=== PATIENT | male | born 1970 | race Caucasian/White ===

== ENCOUNTER 2021-06-27 18:18 | Emergency (ER) | payer BC ==
--- NOTE | 2021-06-27 19:36 | ERPHSYRPT ---
- History of Present Illness Time Seen by Provider: 06/27/21 18:35 Source: patient Exam Limitations: no limitations Patient Subjective Stated Complaint: Pt states "I have been fighting this for the past two weeks and I tried to get into [facility] who is my primary but she could not get me in so I went to the clinic and spoke with negrito and she put me on prednisone for five days and tomorrow is my last day on it. I had no antibiotics and no chest x ray which I would have liked, I am here. I know what works and I need a z pack and cough medicine and prednisone and it will work, I know it will it always does." Triage Nursing Assessment: Pt presented alert and oriented X 3, skin pwd Pt ambulates with an upright steady gait, able to speak in clear full sentences. Pt actually speaking quite a bit without any difficulty. Physician History: Patient is a 50-year-old male presents to our ED with complaints of a cough x2 weeks. Patient followed up in an outside clinic and was started on prednisone. Patient upset that he did not get a chest x-ray antibiotics and cough medication as well. Patient is here requesting these interventions. Cough is dry but occasionally productive of greenish sputum. No fever. Patient has had the symptoms before and states that the above regimen resolves the problem. Symptoms are constant. Symptoms are moderate in intensity. No specific worsening improving factors. No chest pain. No shortness of breath. No nausea vomiting or diaphoresis. No rash. Patient voices no other complaints concerns at this time. Timing/Duration: week(s) (2 weeks) Severity: moderate Modifying Factors: Improves With: nothing Associated Symptoms: denies symptoms, No diaphoresis, No chest pain, No fever, No weakness Allergies/Adverse Reactions: No Known Drug Allergies Allergy (Verified 06/27/21 18:38) Home Medications: Amlodipine Besylate 10 mg PO DAILY 06/27/21 [History] Hx Tetanus, Diphtheria Vaccination/Date Given: Yes Hx Influenza Vaccination/Date Given: No Hx Pneumococcal Vaccination/Date Given: No Immunizations Up to Date: Yes Travel Risk - International Travel Have you traveled outside of the country in past 3 weeks: No - Coronavirus Screening Are you exhibiting any of the following symptoms?: Yes Symptoms: Cough: New Onset Close contact with a COVID-19 positive Pt in past 14-21 Days: No - Vaccine Status Have you recieved a Covid-19 vaccination: Yes News Agent: Moderna - Vaccination Dates Date of 2cond Vaccination (if applicable): 2020 - Review of Systems Constitutional: No Symptoms, No Fever, No Chills Eyes: No Symptoms Ears, Nose, & Throat: No Symptoms Respiratory: No Symptoms, No Cough, No Dyspnea Cardiac: No Symptoms, No Chest Pain, No Edema, No Syncope Abdominal/Gastrointestinal: No Symptoms, No Abdominal Pain, No Nausea, No Vomiting, No Diarrhea Genitourinary Symptoms: No Symptoms, No Dysuria Musculoskeletal: No Symptoms, No Back Pain, No Neck Pain Skin: No Symptoms, No Rash Neurological: No Symptoms, No Dizziness, No Focal Weakness, No Sensory Changes Psychological: No Symptoms Endocrine: No Symptoms Hematologic/Lymphatic: No Symptoms Immunological/Allergic: No Symptoms All Other Systems: Reviewed and Negative - Past Medical History Pertinent Past Medical History: Yes Neurological History: No Pertinent History ENT History: No Pertinent History Cardiac History: Hypertension Respiratory History: Asthma, COPD Endocrine Medical History: Diabetes Type II Musculoskeletal History: Arthritis GI Medical History: No Pertinent History History: No Pertinent History Psycho-Social History: Depression Male Reproductive Disorders: No Pertinent History - Past Surgical History Past Surgical History: Yes Other Surgical History: oral - Social History Smoking Status: Former smoker Exposure to second hand smoke: Yes Drug Use: none Patient Lives Alone: No - Nursing Vital Signs Nursing Vital Signs: Initial Vital Signs Temperature 97.6 F 06/27/21 18:30 Pulse Rate 106 H 06/27/21 18:30 Respiratory Rate 22 06/27/21 18:30 Blood Pressure 148/110 06/27/21 18:30 O2 Sat by Pulse Oximetry 97 06/27/21 18:30 Pain Scale Pain Intensity 0 - Physical Exam General Appearance: no apparent distress, alert Eye Exam: PERRL/EOMI, eyes nml inspection Ears, Nose, Throat Exam: normal ENT inspection, TMs normal, pharynx normal, moist mucous membranes Neck Exam: normal inspection, non-tender, supple, full range of motion Respiratory Exam: normal breath sounds, lungs clear, airway intact, No respiratory distress Cardiovascular Exam: regular rate/rhythm, normal heart sounds, normal peripheral pulses, other (Coarse breath sounds throughout. Wheezing at bases. Patient declined breathing treatment) Gastrointestinal/Abdomen Exam: soft, normal bowel sounds, No tenderness, No mass Back Exam: normal inspection, normal range of motion, No CVA tenderness, No vertebral tenderness Extremity Exam: normal inspection, normal range of motion, pelvis stable Neurologic Exam: alert, oriented x 3, cooperative, normal mood/affect, sensation nml, No motor deficits Skin Exam: normal color, warm, dry, No rash Lymphatic Exam: No adenopathy SpO2 Interpretation: normal SpO2: 95 O2 Delivery: Room Air - Course Nursing assessment & vital signs reviewed: Yes - Radiology Exams Chest X-ray Interpretation: Interpreted by me (Left costophrenic angle blunting. Bibasilar atelectasis. Normal cardiac silhouette. Intact bony thorax.) Ordered Tests: Active Orders 24 hr Category Date Time Status CHEST 1 VIEW (PORTABLE) Stat Exams 06/27/21 19:29 Taken - Progress Progress: improved Progress Note: Physical exam reveals coarse breath sounds. Patient currently on prednisone. Patient declined breathing treatment. Patient requesting Tussionex and a Z-Bob. Prescription for both were provided. Tussionex is a written prescription as it did not want to transmit electronically. Z-Bob was transmitted electronically. Patient agrees to follow-up with primary care doctor within 48 hours reevaluation. He voices other complaints concerns at this time. Patient states he can self administer breathing treatments at home. Portions of this note were created with voice recognition technology. There may be grammatical, spelling, punctuation or sound alike errors 06/27/21 19:49 Counseled pt/family regarding: diagnosis, need for follow-up, rad results - Departure Departure Disposition: Home Clinical Impression: Cough, Bronchitis Condition: Stable Critical Care Time: No Referrals: MARIAN DAN NP [Primary Care Provider] - Follow up/PCP as directed Instructions: Acute Bronchitis Additional Instructions: Discharge/Care Plan GEOVANNY RINCON was seen on 06/27/21 in the Emergency Room. The patient was counseled regarding Diagnosis,Lab results, Imaging studies, need for follow up and when to return to the Emergency Room. Prescriptions given: Discharge Note I have spoken with the patient and/or caregivers. I have explained the patient's condition, diagnosis and treatment plan based on the information available to me at this time. I have answered the patient's and/or caregiver's questions and addressed any concerns. The patient and/or caregivers have as good understanding of the patient's diagnosis, condition and treatment plan as can be expected at this point. The vital signs have been stable. The patient's condition is stable and appropriate for discharge from the emergency department. The patient will pursue further outpatient evaluation with the primary care physician or other designated or consulting physician as outlined in the discharge instructions. The patient and/or caregivers are agreeable to this plan of care and follow-up instructions have been explained in detail. The patient and/or caregivers have received these instruction. The patient/and or caregivers are aware that any significant change in condition or worsening of symptoms should prompt an immediate return to this or the closest emergency department or call 911. Prescriptions: Azithromycin 250 mg [Zithromax 250 MG TABLET] 250 mg PO ZPACK #6 tablet
[2021-06-27 19:58] VITALS: BP 125/65; PULSE 87
[2021-06-27 23:27] VITALS: O2SAT 95
--- NOTE | 2021-06-28 08:46 | XRAY ---
Indication: Cough and congestion. Negative Covid 19. Comparison: None Portable apical lordotic chest hyperinflated with minimal left base subsegmental atelectasis/scarring. Remaining heart and lungs unremarkable. Bony thorax intact with mild degenerative changes.
== END 2021-06-27 20:09 | disposition home or self-care (01) ==
LOC: MERGE 18:18 → ED 18:18
DX: J40 Bronchitis, not specified as acute or chronic (principal); J44.9 Chronic obstructive pulmonary disease, unspecified; I10 Essential (primary) hypertension; E11.9 Type 2 diabetes mellitus without complications
CPT/HCPCS: 71045; 99283

== ENCOUNTER 2023-11-15 13:57 | Emergency (ER) | payer BC, OTHER ==
[2023-11-15 14:11] VITALS: RESP 18; TEMP 98.6
--- NOTE | 2023-11-15 14:24 | ERPHSYRPT ---
- History of Present Illness Time Seen by Provider: 11/15/23 14:23 Historian: patient Exam Limitations: no limitations Patient Subjective Stated Complaint: pt here for constipation and abd pain off and on for 12-14 months now. took 9 laxatives since sat. no vomiting, no loose stools. has not seen family doc for this Triage Nursing Assessment: pt alert, walked in, gait steady, resp easy, skin w/d/p. abd soft, slightly tender to touch epigastric area. moves all ext well. no edema noted Physician History: The patient presents with a 14-month history of abdominal pain and altered bowel habits. He reports a decrease in bowel movements to twice a week, often with difficulty. The pain is localized to the mid-abdomen and has been described as moderate, around a 4 or 5 on a pain scale. The pain does not radiate and has remained in the same location. The patient denies any nausea, vomiting, or blood in the stool. He has tried multiple laxatives with minimal relief, only resulting in passing gas. The patient also reports bloating after eating. He denies any previous abdominal surgeries and does not take any daily pain medications. Timing/Duration: worse, other (14 months) Activities at Onset: rest Quality: fullness Abdominal Pain Onset Location: generalized abdomen Pain Radiation: no radiation Severity of Pain-Max: mild Severity of Pain-Current: mild Modifying Factors: Improves With: nothing Associated Symptoms: loss of appetite, nausea, No back, No chest pain, No diaphoresis, No diarrhea, No fever/chills, No vomiting Previous symptoms: same symptoms as today Allergies/Adverse Reactions: acetaminophen [From Darvocet-N 100] Allergy (Verified 11/15/23 14:08) propoxyphene napsylate [From Darvocet-N 100] Allergy (Verified 11/15/23 14:08) Home Medications: No Reportable Medications [No Reported Medications] 11/15/23 [History] Hx Tetanus, Diphtheria Vaccination/Date Given: Yes Hx Influenza Vaccination/Date Given: No Hx Pneumococcal Vaccination/Date Given: No Immunizations Up to Date: Yes Travel Risk - International Travel Have you traveled outside of the country in past 3 weeks: No - Emerging Infectious Disease Are you exhibiting symptoms associated with any current EIDs: Yes Symptoms: Abdominal Pain - Review of Systems All Other Systems: Reviewed and Negative - Past Medical History Pertinent Past Medical History: Yes Neurological History: No Pertinent History ENT History: No Pertinent History Cardiac History: Hypertension Respiratory History: COPD, Asthma Endocrine Medical History: Diabetes Type II Musculoskeletal History: Arthritis GI Medical History: No Pertinent History History: No Pertinent History Psycho-Social History: Depression Male Reproductive Disorders: No Pertinent History - Past Surgical History Past Surgical History: Yes Other Surgical History: oral - Social History Smoking Status: Current every day smoker How long have you smoked: 15 Exposure to second hand smoke: Yes Drug Use: marijuana Patient Lives Alone: No - Social Determinants of Health Will the patient participate in the screening: Yes Do you worry about a steady place to live?: No Do you have any problems with any of the following?: No known problems In the past 12 months,have you had to go without utilities?: No Transportation Issues: No Has anyone in your support network made you feel unsafe?: No Have you or anyone in your house had to go without enough: No - Nursing Vital Signs Nursing Vital Signs: Initial Vital Signs Temperature 98.6 F 11/15/23 14:10 Pulse Rate 94 H 11/15/23 14:10 Respiratory Rate 18 11/15/23 14:10 Blood Pressure 165/87 11/15/23 14:10 O2 Sat by Pulse Oximetry 100 11/15/23 14:10 Pain Scale Pain Intensity 3 - Physical Exam General Appearance: no apparent distress Eye Exam: eyes nml inspection Ears, Nose, Throat Exam: normal ENT inspection Neck Exam: normal inspection, supple, full range of motion Respiratory Exam: No respiratory distress Cardiovascular Exam: regular rate/rhythm, normal heart sounds, capillary refill <2 sec, No edema Gastrointestinal/Abdomen Exam: soft, No tenderness, No distention, No mass, No guarding, No rebound Back Exam: normal inspection, No CVA tenderness Neurologic Exam: alert, oriented x 3, cooperative Skin Exam: normal color, warm, dry SpO2 Interpretation: normal SpO2: 100 O2 Delivery: Room Air - Course Nursing assessment & vital signs reviewed: Yes - CT Exams Abdomen/Pelvis CT Interpretation: Tele-radiologist Report, Other (hepatomegaly 20cm, retroperitoneal LN, adrenal lesion [id number]) Ordered Tests: Medication Summary Discontinued Medications Generic Name Dose Route Start Last Admin Trade Name Freq PRN Reason Stop Dose Admin Sodium Chloride 1,000 mls @ 999 mls/hr 11/15/23 14:34 11/15/23 16:09 Sodium Chloride 0.9% 1000 Ml IV 11/15/23 15:34 Infused .Q1H1M STA Infusion Sodium Chloride Confirm 11/15/23 14:52 Sodium Chloride 0.9% 1000 Ml Administered 11/15/23 14:53 Dose 1,000 mls @ ud .ROUTE .STK-MED ONE Insulin Human Lispro 8 unit 11/15/23 17:23 11/15/23 17:49 Insulin Lispro 1 Unit SQ 11/15/23 17:24 Not Given STAT ONE Insulin Human Lispro Confirm 11/15/23 17:46 Insulin Lispro 1 Unit Administered 11/15/23 17:47 Dose 8 unit .ROUTE .STK-MED ONE Lab/Rad Data: Laboratory Result Diagrams 11/15/23 14:45 11/15/23 14:45 Laboratory Results 11/15/23 11/15/23 11/15/23 Range/Units 16:14 15:56 14:57 WBC (4.23-9.07) x10^3/uL RBC (4.63-6.08) x10^6/uL Hgb (13.7-17.5) g/dL Hct (40.1-51.0) % MCV (79.0-92.2) fL MCH (25.7-32.2) pg MCHC (32.3-36.5) g/dL RDW (11.6-14.4) % Plt Count (163-337) x10^3/uL MPV (9.4-12.4) fL Gran % (34.0-67.9) % Immature Gran % (Auto) (0.001-0.429) % Nucleat RBC Rel Count (0.00-0.2) % Eos # (Auto) (0.04-0.54) x10^3/uL Immature Gran # (Auto) (0.001-0.031) x10^3u/L Absolute Lymphs (auto) (1.32-3.57) x10^3/uL Absolute Monos (auto) (0.30-0.82) x10^3/uL Absolute Nucleated RBC (0.00-0.012) x10^3u/L Lymphocytes % (21.8-53.1) % Monocytes % (5.3-12.2) % Eosinophils % (0.8-7.0) % Basophils % (0.2-1.2) % Absolute Granulocytes (1.78-5.38) x10^3/uL Basophils # (0.01-0.08) x10^3/uL Sodium (135-145) mmol/L Potassium (3.5-5.1) mmol/L Chloride (98-107) mmol/L Carbon Dioxide (22-30) mmol/L Anion Gap (5-15) MEQ/L BUN (9-20) mg/dL Creatinine (0.66-1.25) mg/dL Estimated GFR ML/MIN Glucose (74-106) mg/dL Hemoglobin A1c 11.62 H (4.5-6.0) % Lactic Acid 1.4 (0.4-2.0) Calcium (8.4-10.2) mg/dL Total Bilirubin (0.2-1.3) mg/dL AST (17-59) U/L ALT (0-50) U/L Alkaline Phosphatase (38-126) U/L Serum Total Protein (6.3-8.2) g/dL Albumin (3.5-5.0) g/dL Lipase (23-300) U/L Urine Color Yellow (Yellow) Urine Appearance Clear (Clear) Urine pH 7.0 (4.6-8.0) Ur Specific [place] >=1.030 A (1.005-1.030) Urine Protein Negative (Negative) Urine Glucose (UA) 500 A (Negative) mg/dL Urine Ketones Negative (Negative) Urine Blood Negative (Negative) Urine Nitrite Negative (Negative) Urine Bilirubin Negative (Negative) Urine Urobilinogen 1.0 A (0.2) mg/dL Ur Leukocyte Esterase Negative (Negative) U Hyaline Cast (Auto) NONE SEEN (0-2) /LPF Urine Microscopic RBC 0-2 (0-5) /HPF Urine Microscopic WBC 0-2 (0-5) /HPF Ur Epithelial Cells Rare (None Seen) /HPF Urine Bacteria None Seen (None Seen) /HPF Urine Culture Reflexed NO (NO) 11/15/23 11/15/23 Range/Units 14:45 14:45 WBC 10.5 H (4.23-9.07) x10^3/uL RBC 5.54 (4.63-6.08) x10^6/uL Hgb 15.4 (13.7-17.5) g/dL Hct 46.2 (40.1-51.0) % MCV 83.4 (79.0-92.2) fL MCH 27.8 (25.7-32.2) pg MCHC 33.3 (32.3-36.5) g/dL RDW 12.7 (11.6-14.4) % Plt Count 274 (163-337) x10^3/uL MPV 10.6 (9.4-12.4) fL Gran % 70.8 H (34.0-67.9) % Immature Gran % (Auto) 0.3 (0.001-0.429) % Nucleat RBC Rel Count 0.0 (0.00-0.2) % Eos # (Auto) 0.13 (0.04-0.54) x10^3/uL Immature Gran # (Auto) 0.03 (0.001-0.031) x10^3u/L Absolute Lymphs (auto) 2.05 (1.32-3.57) x10^3/uL Absolute Monos (auto) 0.80 (0.30-0.82) x10^3/uL Absolute Nucleated RBC 0.00 (0.00-0.012) x10^3u/L Lymphocytes % 19.5 L (21.8-53.1) % Monocytes % 7.6 (5.3-12.2) % Eosinophils % 1.2 (0.8-7.0) % Basophils % 0.6 (0.2-1.2) % Absolute Granulocytes 7.43 H (1.78-5.38) x10^3/uL Basophils # 0.06 (0.01-0.08) x10^3/uL Sodium 133 L (135-145) mmol/L Potassium 4.1 (3.5-5.1) mmol/L Chloride 99 (98-107) mmol/L Carbon Dioxide 25 (22-30) mmol/L Anion Gap 13.5 (5-15) MEQ/L BUN 13 (9-20) mg/dL Creatinine 0.60 L (0.66-1.25) mg/dL Estimated GFR 116.2 ML/MIN Glucose 280 H (74-106) mg/dL Hemoglobin A1c (4.5-6.0) % Lactic Acid (0.4-2.0) Calcium 9.2 (8.4-10.2) mg/dL Total Bilirubin 0.70 (0.2-1.3) mg/dL AST 17 (17-59) U/L ALT 21 (0-50) U/L Alkaline Phosphatase 91 (38-126) U/L Serum Total Protein 7.0 (6.3-8.2) g/dL Albumin 4.3 (3.5-5.0) g/dL Lipase 419 H (23-300) U/L Urine Color (Yellow) Urine Appearance (Clear) Urine pH (4.6-8.0) Ur Specific [place] (1.005-1.030) Urine Protein (Negative) Urine Glucose (UA) (Negative) mg/dL Urine Ketones (Negative) Urine Blood (Negative) Urine Nitrite (Negative) Urine Bilirubin (Negative) Urine Urobilinogen (0.2) mg/dL Ur Leukocyte Esterase (Negative) U Hyaline Cast (Auto) (0-2) /LPF Urine Microscopic RBC (0-5) /HPF Urine Microscopic WBC (0-5) /HPF Ur Epithelial Cells (None Seen) /HPF Urine Bacteria (None Seen) /HPF Urine Culture Reflexed (NO) - Progress Progress: improved Progress Note: Patient has uncontrolled DMII on no meds, A1c >11. Recommend f/u with PCP to s tart meds. Ordered insulin today, but patient eloped prior to receiving. He was also found to have an adrenal lesion for which I advised f/u with PCP for further evaluation. Recommend Miralax 2 caps QD until stool loosens then decrease to QD. No acute findings found today requiring emergent intervention. Counseled pt/family regarding: lab results, diagnosis, need for follow-up, rad results Medical Desision Making - Diagnostic Testing Diagnostic test were ordered, analyzed, and reviewed by me: Yes Radiological Interpretation: Interpreted by me, Reviewed by me, Teleradiologist Report - Risk of complications The pt has a mod risk of morbidity or mortality based on: Need for prescription drug management - Departure Departure Disposition: Home (eloped prior to dc) Clinical Impression: Hepatomegaly, Retroperitoneal lymphadenopathy, Adrenal nodule, Lung nodule, Elevated lipase, Diabetes mellitus type II, uncontrolled Condition: Good Critical Care Time: No Referrals: MRAIAN DAN NP [Primary Care Provider] - Follow up/PCP as directed Instructions: Abdominal pain
[2023-11-15] MEDS ORDERED: Sodium Chloride 0.9% 1000 ML 1,000 ML ONE (14:52)
[2023-11-15] MEDS: Sodium Chloride 0.9% 1000 ML 1,000 ML IV STA (14:54)
[2023-11-15 14:56] LABS: Absolute Neutrophil Ct (ANC) 7.43 x10^3/uL (1.78-5.38); BASOPHIL % 0.6 % (0.2-1.2); Basophil (Absolute #) 0.06 x10^3/uL (0.01-0.08); Eosinophil % 1.2 % (0.8-7.0); Eosinophil (Absolute #) 0.13 x10^3/uL (0.04-0.54); Hematocrit 46.2 % (40.1-51.0); Hemoglobin 15.4 g/dL (13.7-17.5); IMMATURE GRAN # 0.03 x10^3u/L (0.001-0.031); IMMATURE GRAN % 0.3 % (0.001-0.429); Lymphocyte (Absolute #) 2.05 x10^3/uL (1.32-3.57); Lymphocytes % 19.5 % (21.8-53.1); Mean Cell Volume 83.4 fL (79.0-92.2); Mean Corpuscular Hemoglobin 27.8 pg (25.7-32.2); Mean Corpuscular Hgb Concent. 33.3 g/dL (32.3-36.5); Mean Platelet Volume 10.6 fL (9.4-12.4); Monocytes % 7.6 % (5.3-12.2); Neutrophil % 70.8 % (34.0-67.9); Platelet Count 274 x10^3/uL (163-337); Red Blood Count 5.54 x10^6/uL (4.63-6.08); Red Cell Distribution Width 12.7 % (11.6-14.4); White Blood Count 10.5 x10^3/uL (4.23-9.07)
[2023-11-15 15:17] LABS: ALBUMIN 4.3 g/dL (3.5-5.0); ANION GAP 13.5 MEQ/L (5-15); BILIRUBIN,TOTAL 0.7 mg/dL (0.2-1.3); Calcium 9.2 mg/dL (8.4-10.2); Creatinine 1 0.6 mg/dL (0.66-1.25); EST GLOMERULAR FILTRATION RATE 116.2 ML/MIN; Potassium 4.1 mmol/L (3.5-5.1)
[2023-11-15 15:29] VITALS: PULSE 62
[2023-11-15 16:15] VITALS: BP 156/84
[2023-11-15 16:27] LABS: Appearance Clear (Clear); Bacteria None Seen /HPF (None Seen); Bilirubin Negative (Negative); Blood Negative (Negative); Epithelial Cells Rare /HPF (None Seen); Glucose, Urine 500 mg/dL (Negative); Hyaline Casts NONE SEEN /LPF (0-2); Ketones Negative (Negative); Leukocyte Esterase Negative (Negative); Nitrite Negative (Negative); Protein,Urine Dip Negative (Negative); RBC 0-2 /HPF (0-5); Specific Gravity >=1.030 (1.005-1.030); WBC 0-2 /HPF (0-5)
[2023-11-15 16:33] LABS: ADD URINE CULTURE? NO (NO)
--- NOTE | 2023-11-15 16:48 | XRAY ---
CLINICAL HISTORY: abd pain COMPARISON: none TECHNIQUE: Axial CT of the abdomen and pelvis was performed with IV contrast. Coronal and sagittal reconstructions were also obtained. One of the following dose reduction techniques were utilized for this exam: Automated exposure control, adjustment of the mA and/or kV according to patient size, and use of iterative reconstruction. FINDINGS: Hepatomegaly, measuring 20 cm at the largest craniocaudal span in the right lobe. No focal parenchymal abnormality. No focal hepatic mass. The portal vein and hepatic veins look normal. Normal gallbladder, no dense stones, no biliary dilatation. The pancreas shows a normal homogenous texture, no focal lesion, no surrounding fluid or fat stranding. The spleen is normal in size and texture, no focal lesion. The kidneys are normal in size and shape. No calculi or hydronephrosis is seen. Left adrenal gland hypodense soft tissue nodule seen ([id number]). Right adrenal gland is preserved. Normal stomach and small bowel. Cecum, ileocecal junction and appendix appear unremarkable. Ascending colon, transverse colon, descending colon, sigmoid colon and rectum are within normal limits. No bowel mass lesion or abnormal wall thickening. No intestinal obstruction or free gas. Few upper retroperitoneal lymph nodes seen in the celiac/periportal group (the largest=13mm). No ascites or collection. The scanned lower chest: right lower lobe fissural calcified nodule (6 x 4mm) likely represents a calcified lymph node. No suspicious bony lesion. IMPRESSION: Hepatomegaly, measuring 20 cm Few upper retroperitoneal lymph nodes were seen in the celiac/periportal group (the largest=13mm). Left adrenal gland hypodense soft tissue nodule seen (=[id number]), for CT adrenal protocol. Electronically Signed by: Hannah Dominguez MD. (11/15/2023 16:43:33 EDT)
[2023-11-15 17:13] VITALS: O2SAT 100
[2023-11-15] MEDS ORDERED: HUMALOG ONE (17:46)
[2023-11-15] MEDS: HUMALOG SQ ONE (17:47)
== END 2023-11-15 17:51 | disposition home or self-care (01) ==
LOC: ED 13:57
DX: R16.0 Hepatomegaly, not elsewhere classified (principal); R59.0 Localized enlarged lymph nodes; E27.8 Other specified disorders of adrenal gland; R91.1 Solitary pulmonary nodule; R74.8 Abnormal levels of other serum enzymes; E11.65 Type 2 diabetes mellitus with hyperglycemia; R10.9 Unspecified abdominal pain; R19.4 Change in bowel habit; I10 Essential (primary) hypertension; Z72.0 Tobacco use
CPT/HCPCS: 36000; 36415; 74177; 80053; 81001; 83036; 83605; 83690; 85025; 99284; J1817